=== PATIENT | female | born 1995 | race Caucasian/White ===

== ENCOUNTER 2024-10-31 00:43 | Emergency (ER) | payer MEDICAID ==
[~2024-10-31] VITALS: Ht 157.5 cm; Wt 100.0 kg
[2024-10-31 00:58] VITALS: O2SAT 97
[2024-10-31 01:29] VITALS: BP 118/72; PULSE 102; RESP 16; TEMP 36.8; O2SAT 99
== END 2024-10-31 04:35 | disposition left against medical advice (07) ==
LOC: ER 00:43
DX: R07.89 Other chest pain (principal); Z53.21 Procedure and treatment not carried out due to patient leaving prior to being seen by health care provider
CPT/HCPCS: 71045; 93005